=== PATIENT | male | born 1975 | race Caucasian/White ===

== ENCOUNTER 2020-01-27 19:41 | Emergency (ER) | payer MEDICAID ==
[~2020-01-27] VITALS: Ht 180.3 cm; Wt 74.8 kg
[2020-01-27] MEDS ORDERED: IBUP-1096 PO (19:53)
--- NOTE | 2020-01-27 19:57 | NUR ---
Pt brought himself to the ER from home. Pt is alert, oriented x 4. Verbally responsive. Per patient, he is here today for lower back pain. At the time of assessment, pain is at 7-8/10, characterized pain as: aching and throbbing, and he has been experiencing this pain 1 day [employer] but according to him he has history of L5 to S1 fusion. Placed patient in comfortable position in bed. Breathing is even and unlabored. No signs of acute distress. No GI/ complaints. No musculoskletal issues or gait problems noted. Able to ambulate without assistance. Side rails up x 2. Bed locked in position. Will continue to monitor. Addendum: 01/27/20 at 2007 by JAYLEN Pt brought himself to the ER from home. Pt is alert, oriented x 4. Verbally responsive. Per patient, he is here today for lower back pain. 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 Placed patient in comfortable position in bed. Breathing is even and unlabored. No signs of acute distress. No GI/ complaints. No musculoskletal issues or gait problems noted. Able to ambulate without assistance. Side rails up x 2. Bed locked in position. Will continue to monitor.
--- NOTE | 2020-01-27 19:59 | NUR ---
Dr. Del Toro at bedside for MSE.
[2020-01-27] MEDS ORDERED: HYDROCODONE/APAP 10-325 MG TABLET PO ONE (20:15)
--- NOTE | 2020-01-27 20:17 | NUR ---
Placed a call to Radiology for FARNAZ.
[2020-01-27] MEDS ORDERED: HYDROCODONE/APAP 10-325 MG TABLET ONE (20:21)
--- NOTE | 2020-01-27 20:27 | NUR ---
FARNAZ galeana at bedside .
[2020-01-27 20:28] LABS: *BILIRUBIN,URIN NEGATIVE (NEGATIVE); *BLOOD, URINE TRACE (NEGATIVE); *CLARITY,URINE CLEAR (CLEAR); *COLOR,URINE YELLOW (YELLOW); *KETONES,URINE NEGATIVE (NEGATIVE); *UROBILINOGEN,URINE 0.2 E.U./dl (NORMAL); LEUKOCYTE ESTERASE ,URINE NEGATIVE (NEGATIVE); NITRITE, URINE NEGATIVE (NEGATIVE); PH,URINE 5.5 (5.0-8.0); UGLUCOSE NEGATIVE (NEGATIVE)
[2020-01-27 20:32] LABS: MUCUS,URINE FEW /LPF (0-FEW); RBC,URINE 0-3 /HPF (0-3); WBC,URINE NONE SEEN /HPF (0-3)
[2020-01-27 20:40] VITALS: BP 120/75
--- NOTE | 2020-01-27 21:14 | NUR ---
Patient discharged to home in stable condition. Written and verbal after care instructions given. Proper referral to specialists also included in the packet given to patient. Patient verbalizes understanding of instructions and need for follow up. Walked out of ER in steady gait and stable condition.
== END 2020-01-27 21:22 | disposition home or self-care (01) ==
LOC: ER 19:41
DX: M54.5 Low back pain (principal); N43.3 Hydrocele, unspecified; Z98.1 Arthrodesis status
CPT/HCPCS: 76870; A4663